=== PATIENT | male | born 1980 | race Caucasian/White ===

== ENCOUNTER 2016-06-10 01:48 | Emergency (ER) | payer OTHER ==
[2016-06-10 01:56] VITALS: PULSE 60; TEMP 97.9; BMI 22.5
[2016-06-10 02:14] VITALS: BP 122/89
--- NOTE | 2016-06-10 03:12 | PDOC ---
History of Present Illness - General Chief Complaint: Chest Pain Stated Complaint: CHEST PAIN - History of Present Illness Initial Comments: 06/10/16 06:49 mild cp with inspiration + numbness ot KAYLA ASH frequent urination worried about his job cp is central, only with inspiration, mild cardiac rfs: denies all PE rfs: flight to [place] 3 weeks ago, otherwise negative, no lung swelling fhx: noncontrib ros: reviewed and otherwise negative PE GENERAL: [The patient is awake, alert, and fully oriented, and in no apparent distress.] HEAD: [Normal with no signs of trauma.] EYES: [Pupils equal, round and reactive to light, extraocular movements intact, sclera anicteric, conjunctiva are normal.] ENT: [TMs normal, nares patent, oropharynx clear without exudates. Moist mucous membranes.] NECK: [Normal range of motion, supple without lymphadenopathy, JVD, or masses.] LUNGS: [Breath sounds equal, clear to auscultation bilaterally. No wheezes, and no crackles.] HEART: [Regular rate and rhythm, normal S1 and S2 without murmur, rub or gallop.] ABDOMEN: [Soft, nontender, normoactive bowel sounds. No guarding, no rebound. No masses appreciated.] EXTREMITIES: [Normal range of motion, no edema. No clubbing or cyanosis. No cords, erythema, or tenderness.] NEUROLOGICAL: [Cranial nerves II through XII grossly intact. Normal speech, normal gait. No sensory deficit to light touch in 4 ext PSYCH: [Normal mood, normal affect.] SKIN: [Warm, Dry, normal turgor, no rashes or lesions noted.] BP= and strong in BL UEs (138/88 R 132/87L) EKG: sinus at 60, nl axis, nl intervals a/p nonspecific cp PERC- no cardiac RFs likley anxiety counselled re: stress mediation Past History - Past Medical History Allergies/Adverse Reactions: Allergies Allergy/AdvReac Type Severity Reaction Status Date / Time No Known Allergies Allergy Verified 06/10/16 01:50 Home Medications: Ambulatory Orders NK [No Known Home Medication] 06/10/16 Other medical history: DENIES - Psycho/Social/Smoking Cessation Hx Anxiety: No Suicidal Ideation: No Smoking History: Never smoked Have you smoked in the past 12 months: No Information on smoking cessation initiated: No Hx Alcohol Use: Yes (LIGHT DRINKER) Drug/Substance Use Hx: No Substance Use Type: None *Physical Exam - Vital Signs Last Vital Signs Temp Pulse Resp BP Pulse Ox 97.9 F 60 16 131/91 100 06/10/16 01:51 06/10/16 01:51 06/10/16 01:51 06/10/16 01:51 06/10/16 01:51 *DC/Admit/Observation/Transfer Diagnosis at time of Disposition: Chest pain Qualifiers: Chest pain type: chest pain on breathing Qualified Code(s): R07.1 - Chest pain on breathing - Discharge Dispostion Disposition: HOME Condition at time of disposition: Stable - Patient Instructions Printed Discharge Instructions: DI for Atypical Chest Pain
--- NOTE | 2016-06-10 17:59 | EKG ---
Test Reason : Blood Pressure : / mmHG Vent. Rate : 060 BPM Atrial Rate : 060 BPM P-R Int : 128 ms QRS Dur : 102 ms QT Int : 406 ms P-R-T Axes : 044 093 034 degrees QTc Int : 406 ms POOR DATA QUALITY, INTERPRETATION MAY BE ADVERSELY AFFECTED NORMAL SINUS RHYTHM WITH SINUS ARRHYTHMIA RIGHTWARD AXIS NONSPECIFIC ST ABNORMALITY NO PREVIOUS ECGS AVAILABLE Confirmed by MD TELMA, SOURAV ([id number]) on 06/10/2016 5:59:51 PM Referred By: MD MURRELL Confirmed By:SOURAV HOLLIS MD
== END 2016-06-10 02:15 | disposition home or self-care (01) ==
LOC: FER 01:48
DX: R07.1 Chest pain on breathing (principal)
CPT/HCPCS: 93005; 99282-25

== ENCOUNTER 2018-05-07 15:46 | Emergency (ER) | payer OTHER ==
[2018-05-07 16:00] VITALS: BP 136/73; PULSE 65; TEMP 97.6; BMI 22.5
--- NOTE | 2018-05-07 16:50 | PDOC ---
History of Present Illness - General Chief Complaint: Headache Stated Complaint: HEADACHE S/P INJURY YESTERDAY. Time Seen by Provider: 05/07/18 16:50 History Source: Patient - History of Present Illness Initial Comments: 05/07/18 16:53 Pt presents to the ED complaining of headache and mild nausea after hitting his left orbital wall against a window sill yesterday. patient did not loose consiousness. Denies other injuries. Since waking up this morning, he has been experiencing mild headache and mild nausea without vomiting. Denies passing out, severe headache, or focal neurologic complaints. He is also complaining of pain to his left orbital wall and a small ecchymosis there. Denies diplopia or visual changes. PMHL None Medications: none 05/07/18 16:58 Past History - Past Medical History Allergies/Adverse Reactions: Allergies Allergy/AdvReac Type Severity Reaction Status Date / Time No Known Allergies Allergy Verified 05/07/18 15:48 Home Medications: Ambulatory Orders NK [No Known Home Medication] 06/10/16 COPD: No Other medical history: pt denies - Suicide/Smoking/Psychosocial Hx Smoking History: Never smoked Have you smoked in the past 12 months: No Hx Alcohol Use: Yes (occasional) Drug/Substance Use Hx: No Substance Use Type: None Review of Systems - Review of Systems Able to Perform ROS?: Yes Is the patient limited [place] proficient: No Constitutional: No: Symptoms Reported, See HPI, Chills, Diaphoresis, Fever, Loss of Appetite, Malaise, Night Sweats, Weakness, Weight Stable, Unintentional Wgt. Loss, Unexplained wgt Loss, Other HEENTM: No: Symptoms Reported, See HPI, Eye Pain, Blurred Vision, Tearing, Recent change in vision, Double Vision, Cataracts, Ear Pain, Ocular Prothesis, Ear Discharge, Nose Pain, Nose Congestion, Tinnitus, Nose Bleeding, Hearing Loss , Throat Pain, Throat Swelling, Mouth Pain, Dental Problems, Difficulty Swallowing, Mouth Swelling, Other Respiratory: No: Symptoms reported, See HPI, Cough, Orthopnea, Shortness of Breath, SOB with Exertion, SOB at Rest, Stridor, Wheezing, Productive cough, Hemoptysis, Other Cardiac (ROS): No: Symptoms Reported, See HPI, Chest Pain, Edema, Irregular Heart Rate, Lightheadedness, Palpitations, Syncope, Chest Tightness, Other ABD/GI: No: Symptoms Reported, See HPI, Abdominal Distended, Abd. Pain w/ defecation, Blood Streaked Bowels, Constipated, Diarrhea, Difficulty Swallowing , Nausea, Poor Appetite, Poor Fluid Intake, Rectal Bleeding, Vomiting, Indigestion, Abdominal cramping, Tarry Stools, Other : No: Symptoms Reported, See HPI, Burning, Dysuria, Discharge, Frequency, Flank Pain, Hematuria, Incontinence, Pain, Urgency, Testicular Mass, Testicular Swelling, Lesions, Testicular Pain, Other Musculoskeletal: No: Symptoms Reported, See HPI, Back Pain, Gout, Joint Pain, Joint Swelling, Muscle Pain, Muscle Weakness, Neck Pain, Joint Stiffness, Other Neurological: No: Symptoms reported, See HPI, Headache, Numbness, Paresthesia, Pre-Existing Deficit, Seizure, Tingling, Tremors, Weakness, Unsteady Gait, Ataxia, Dizziness, Other *Physical Exam - Vital Signs Last Vital Signs Temp Pulse Resp BP Pulse Ox 97.6 F 65 18 136/73 100 05/07/18 15:47 05/07/18 15:47 05/07/18 15:47 05/07/18 15:47 05/07/18 15:47 - Physical Exam General Appearance: Yes: Nourished, Appropriately Dressed, Apparent Distress HEENT: positive: EOMI Neck: positive: Supple Respiratory/Chest: positive: Lungs Clear, Normal Breath Sounds Cardiovascular: positive: Regular Rhythm, Regular Rate Musculoskeletal: positive: Normal Inspection Extremity: positive: Normal Inspection, Normal Range of Motion Integumentary: positive: Dry, Warm Neurologic: positive: ham curer II-XII NML intact, Fully Oriented, Alert, Normal Mood/ Affect, Motor Strength 5/5 Moderate Sedation - Procedure Monitoring Vital Signs: Procedure Monitoring Vital Signs Temperature 97.6 F 05/07/18 15:47 Pulse Rate 65 05/07/18 15:47 Respiratory Rate 18 05/07/18 15:47 Blood Pressure 136/73 05/07/18 15:47 O2 Sat by Pulse Oximetry (%) 100 05/07/18 15:47 Medical Decision Making - Medical Decision Making 05/07/18 16:59 Pt presents to the ED after hitting his head on a window sill yesterday complaining of headache and nausea. Also has ecchymosis and tenderness over his left orbital wall. Minimal concern for brain injury, given his mechanism of injury and normal neuro exam. Given the location of his tenderness and ecchymosis, will check CT to rule out orbital fracture. 05/07/18 18:43 Ct is negative for fracture. Will discharge home. *DC/Admit/Observation/Transfer Diagnosis at time of Disposition: Contusion of face Qualifiers: Encounter type: initial encounter Qualified Code(s): S00.83XA - Contusion of other part of head, initial encounter Closed head injury Qualifiers: Encounter type: initial encounter Qualified Code(s): S09.90XA - Unspecified injury of head, initial encounter - Discharge Dispostion Disposition: HOME Condition at time of disposition: Good Decision to Admit order: No - Referrals - Patient Instructions Printed Discharge Instructions: DI for Closed Head Injury Additional Instructions: You came to the ED because you hit your head yesterday and were experiencing headache and nausea. Your injury is very unlikey to cause injury to your brain and the cat scan of your facial bones was negative. You may have a concussion, which is not dangerous, but can be very uncomfortable. You may experience mild nausea, headache and dizziness, but return to the ED if these symptoms are severe, or for any new or worsening symptoms. Make sure that you follow up with your primary care doctor. - Post Discharge Activity
== END 2018-05-07 18:58 | disposition home or self-care (01) ==
LOC: FER 15:46
DX: S09.90XA Unspecified injury of head, initial encounter (principal); S00.83XA Contusion of other part of head, initial encounter; X58.XXXA Exposure to other specified factors, initial encounter; Y93.89 Activity, other specified; Y92.89 Other specified places as the place of occurrence of the external cause
CPT/HCPCS: 70480-TC; 99281-25